=== PATIENT | female | born 1950 | race Caucasian/White ===

== ENCOUNTER → 2018-04-25 | Day surgery (SDC) | payer MEDICARE ==
[2018-04-20 11:42] LABS: BASOPHILS # (AUTO) 0.1 (0.0-0.1); BASOPHILS % 0.6 % (0.0-1.0); EOSINOPHILS # (AUTO) 0.2 (0.0-0.4); EOSINOPHILS % 1.9 % (0.0-6.0); HEMATOCRIT 41.7 % (34.2-44.1); HEMOGLOBIN 13.3 g/dL (12.0-16.0); LYMPHOCYTES # (AUTO) 2.8 (1.0-3.2); LYMPHOCYTES % 29.2 % (18.0-39.1); MEAN CORPUSCULAR HEMOGLOBIN 28.5 pg (28-32); MEAN CORPUSCULAR HGB CONC 31.9 g/dL (31-35); MEAN CORPUSCULAR VOLUME 89.3 fL (81-99); MONOCYTES # (AUTO) 0.7 (0.2-0.8); MONOCYTES % 7.3 % (4.4-11.3); NEUTROPHILS # (AUTO) 5.8 (2.1-6.9); NEUTROPHILS % 60.6 % (38.7-80.0); PLATELET COUNT 290 x10e3/uL (140-360); RED BLOOD COUNT 4.67 x10e6/uL (3.6-5.1); RED CELL DISTRIBUTION WIDTH 18.5 % (11.7-14.4)
[2018-04-20 12:06] LABS: ALANINE AMINOTRANSFERASE 15 IU/L (0-55); ALBUMIN 3.7 g/dL (3.5-5.0); ALBUMIN/GLOBULIN RATIO 1.1 (0.8-2.0); ALKALINE PHOSPHATASE 94 IU/L (40-150); ANION GAP 15.8 mmol/L (8-16); BLOOD UREA NITROGEN 10 mg/dL (7-26); BUN/CREATININE RATIO 13 (6-25); CALCIUM 9.2 mg/dL (8.4-10.2); CARBON DIOXIDE 26 mmol/L (22-29); CHLORIDE 105 mmol/L (98-107); CREATININE, SERUM 0.75 mg/dL (0.57-1.11); EST GLOMERULAR FILTRATION RATE > 60 ML/MIN (60-); GLUCOSE 105 mg/dL (74-118); POTASSIUM 3.8 mmol/L (3.5-5.1); SODIUM 143 mmol/L (136-145)
--- NOTE | 2018-04-20 12:23 | Diagnostic Imaging Report ---
PROCEDURE: Frontal and lateral views of the chest. COMPARISON: None. INDICATIONS: BREAST RECONSTRUCTION, PRE OPERATIVE CHEST X-RAY FINDINGS: Lines/tubes: None. Lungs: Right infrahilar airspace opacity. Linear subsegmental atelectasis in the left lower lung. Pleura: There is no pleural effusion or pneumothorax. Heart and mediastinum: Enlarged cardiac silhouette. Prominence of bilateral pulmonary arteries, left greater than right Bones: No acute bony abnormality. Degenerative changes in the thoracic spine. IMPRESSION: 1. right infrahilar airspace opacity, which may represent atelectasis or developing pneumonia, in the appropriate clinical setting. Karlos Garcia M.D. Dictated by: Karlos Garcia M.D. on 04/20/2018 at 12:26 Electronically approved by: Karlos Garcia M.D. on 04/20/2018 at 12:26
[~2018-04-25] MED LIST: BACITRACIN 50,000 UNIT VIAL ONE; BYDUREON2 MG SC; DEXAMETHASONE SOD PHOS INJ 4 MG/ML VIAL ONE; DEXTROSE 5% 250ML 250 ML IV ONE; FENTANYL CITRATE/PF 100MCG/2 ML INJ ONE; GABAPENTIN100 MG PO; GLYCOPYRROLATE INJ 1MG/ 5 ML SYR ONE; INVOKANA PO; LANTUS 3ML100 UNITS/ SC; LETROZOLE2.5 MG PO; LIDOCAINE HCL 2% LOCAL INJ 5 ML SDV VIAL INJ ONE; LIPITOR10 MG PO; LORAZEPAM0.5 MG PO; LUNESTA3 MG PO; METOCLOPRAMIDE HCL 10 MG/2ML VIAL ONE; METOPROLOL TART50 MG PO; METOPROLOL TARTRATE INJ 1 MG/ML VIAL ONE; MIDAZOLAM HCL 2 MG/2 ML VIAL ONE; MORPHINE SULFATE INJ 10 MG/ML ONE; NEOSTIGMINE 5 MG/5ML SYR ONE; ONDANSETRON HCL 4 MG ORAL DISINTEGRATING TAB ONE; ONDANSETRON HCL INJ 2 MG/ML VIAL ONE; PROPOFOL IV EMULSION 10 MG/ML 20 ML VIAL ONE; ROCURONIUM BROMIDE 10 MG/ML 5ML VIAL ONE; SEVOFLURANE INHAL SOLN 250 ML PEN BTL ONE; SYNTHROID125 MCG PO; ULTRAM50 MG PO; XARELTO10 MG PO
--- OUTSIDE RECORDS SUMMARY | 2018-04-25 10:17 | XMS REPORT | Clinical Summary ---
Author Author [facility] Address Unknown Phone Unavailable Care Team Providers Care Agricultural Equipment Salesperson Name Role Phone Marci Webster MD PCP Allergies No Known Allergies Current Medications Prescription Sig. Disp. Refills Start End Date Status Date ARIPiprazole (ABILIFY) 20 TK 1 T PO QD 1 04/07/20 Active MG tablet 17 atorvastatin (LIPITOR) 40 TK 1 T PO QD 1 02/16/20 Active MG tablet 17 INVOKANA 100 mg tablet 04/19/20 Active tablet 17 cyclobenzaprine 03/14/20 Active (FLEXERIL) 10 mg tablet 17 CARTIA XT 180 mg 24 hr 03/03/20 Active capsule 17 DULoxetine (CYMBALTA) 60 TK ONE C PO QD 0 02/08/20 Active MG capsule 17 BYDUREON 2 mg/0.65 mL pen 03/28/20 Active injector 17 folic acid (FOLVITE) 1 MG 02/22/20 Active tablet 17 HYDROcodone-acetaminophen TK 1 T PO QID PRF 0 04/06/20 Active (NORCO) 10-325 mg per BREAKTHROUGH PAIN 17 tablet traMADol-acetaminophen TK 1 T PO BID PRF 0 04/05/20 Active (ULTRACET) 37.5-325 mg BREAKTHROUGH P 17 per tablet insulin GLARGINE (LANTUS) Inject 60 Units under the Active 100 unit/mL injection skin nightly. (vial) etodolac (LODINE) 300 MG Take 300 mg by mouth 2 Active capsule (two) times a day before meals. melatonin 10 mg capsule Take 30 mg by mouth Active daily. levothyroxine (SYNTHROID, 02/18/20 Active LEVOXYL) 150 mcg tablet 17 methotrexate 2.5 MG Take by mouth every 12 Active tablet (twelve) hours for 3 (three) doses only each week. biotin 1 mg capsule Take 1 capsule by mouth Active daily. eszopiclone (LUNESTA) 3 Take 3 mg by mouth Active mg tablet nightly. Take immediately before bedtime furosemide (LASIX) 20 mg Take 20 mg by mouth Active tablet daily. gabapentin (NEURONTIN) Take 100 mg by mouth 3 Active 100 mg capsule (three) times a day. LORAZepam (ATIVAN) 0.5 MG Take 0.5 mg by mouth 2 Active tablet (two) times a day. metoprolol tartrate Take 50 mg by mouth 3 Active (LOPRESSOR) 50 mg tablet (three) times a day. morPHINE (MS CONTIN) 30 Take 30 mg by mouth 2 Active MG 12 hr tablet (two) times a day. ondansetron (ZOFRAN) 8 MG Take 8 mg by mouth every Active tablet 8 (eight) hours as needed for nausea or vomiting. prochlorperazine Take 10 mg by mouth every Active (COMPAZINE) 10 MG tablet 6 (six) hours as needed for nausea or vomiting. traMADol (ULTRAM) 50 mg Take 50 mg by mouth every Active tablet 6 (six) hours as needed for moderate pain. rivaroxaban (XARELTO) 15 Take 15 mg by mouth Active mg tablet daily. TREXALL 10 mg tablet TK 5 TS PO 1 TIME WEEKLY 0 03/08/20 05/19/20 Discontin 17 17 ued Active Problems Problem Noted Date Carcinoma of right breast 04/21/2017 Encounters Date Type Specialty Care Team Description 12/01/2017 Hospital Radiology Nathalie Ferrer MD Elevated liver function Encounter tests 11/24/2017 Transcribe Access Nathalie Ferrer MD Elevated liver function Orders tests (Primary Dx) 10/27/2017 Emergency Emergency Medicine Jaycee Fernandez MD Hyperglycemia (Primary Dx) 07/07/2017 Office Visit General Surgery Bong Hope MD Carcinoma of right breast (Primary Dx) 05/19/2017 Office Visit General Surgery Bong Hope MD Carcinoma of right breast (Primary Dx) 05/13/2017 Telephone General Surgery Delma Mistry MA 05/11/2017 [facility] Radiology Bong Hope MD Invasive carcinoma of Encounter breast 05/11/2017 [facility] General Surgery Bong Hope MD Carcinoma of right Encounter breast; Invasive ductal carcinoma of breast, unspecified laterality 05/11/2017 Hospital Radiology Bong Hope MD Invasive carcinoma of Encounter breast 05/11/2017 Anesthesia General Surgery Gurjit Medina 05/11/2017 Procedure Pass General Surgery 05/11/2017 Surgery General Surgery Bong Hope MD RIGHT BREAST LUMPECTOMY, WIRE LOCALIZATION, SENTINEL LYMPH NODE BIOPSY 05/09/2017 Hospital Radiology Bong Hope MD Encounter 05/09/2017 Hospital Radiology Bong Hope MD Encounter 05/09/2017 Hospital Radiology Bong Hope MD Encounter 05/09/2017 Hospital Radiology Bong Hope MD Encounter 05/09/2017 Ancillary Radiology Bong Hope MD Orders 04/27/2017 Procedure Pass General Surgery after 04/24/2017 Family History Medical History Relation Name Comments Colon cancer Brother Diabetes Brother Heart disease Brother Stroke Brother Arthritis Mother Colon cancer Mother Diabetes Mother Hypertension Mother Diabetes Sister Heart disease Sister Lung disease Sister Relation Name Status Comments Brother Alive Father Mother Sister Alive Social History Tobacco Use Types Packs/Day Years Used Date Former Smoker Cigarettes 0.5 1 Quit: 1970 Smokeless Tobacco: Never Used Alcohol Use Drinks/Week oz/Week Comments No Sex Assigned at Date Recorded Not on file Last Filed Vital Signs Vital Sign Reading Time Taken Blood Pressure 123/60 10/27/2017 12:00 PM [employer]CH[employer] Pulse 112 10/27/2017 12:00 PM [employer]CH[employer] Temperature 36.7 C (98.1 F) 10/27/2017 10:32 AM [employer] ARCHITECT Respiratory Rate 16 10/27/2017 12:00 PM [employer] ARCHITECT Oxygen Saturation 97% 10/27/2017 12:00 PM [employer] ARCHITECT Inhaled Oxygen - - Concentration Weight 93.9 kg (207 lb) 05/11/2017 8:20 AM CDT Height 161.3 cm (5' 3.5") 10/27/2017 10:42 AM [employer] ARCHITECT Body Mass Index 35.53 05/11/2017 8:20 AM CDT Plan of Treatment Health Maintenance Due Date Last Done Comments COLON CANCER SCREENING 2001 SHINGRIX VACCINE (#1) 2001 ZOSTER VACCINE 2011 PNEUMOCOCCAL 2016 POLYSACCHARIDE VACCINE AGE 65 AND OVER PNEUMOCOCCAL-13 2016 INFLUENZA VACCINE 06/28/2018 BREAST CANCER SCREENING 05/11/2019 05/11/2017 Procedures Procedure Name Priority Date/Time Associated Diagnosis Comments CT AN ELECTIVE Routine 05/11/2017 SUPRAGLOTTIC AIRWAY 10:44 AM CDT Procedure Note - Gurjit Medina - 05/11/2017 10:43 AM CDT Airway Date/Time: 05/11/2017 10:33 AM Performed by: GURJIT MEDINA Authorized by: ALYSSA LAU Location: OR Urgency: Elective Difficult Airway: No Anesthesio logist: ALYSAS LAU Other Anesthesia Staff: GURJIT MEDINA Performed by: other anesthesia staff Preoxygena ynes with 100% O2: Yes C-spine Precaution s Maintained Throughout : Yes Mask Ventilatio n: Easy mask Final Airway Type: Supraglott ic airway Final LMA: [place] LMA Size: 4 Number of Attempts at Approach: 1 Lips and gums in preanesthe tic condition RIGHT BREAST LUMPECTOMY, 05/11/2017 RIGHT BREAST INVASIVE WIRE LOCALIZATION, 10:30 AM CDT CARCINOMA C50.919 SENTINEL LYMPH NODE BIOPSY after 04/24/2017 Results * US Abdomen Complete (12/01/2017 9:30 AM) Specimen Performing Laboratory [address] [address] Narrative EXAM: US ABDOMEN COMPLETE CLINICAL DATA: 67 years Female R79.89 Other specified abnormal findings of blood chemistry, INCREASED LIVER FUNCTION COMPARISON: NONE. FINDINGS: The liver is mildly heterogeneous and echogenic suggesting mild diffuse fatty infiltration. No focal lesions are identified. The main portal vein is within normal limits measuring 8 mm. Flow is toward the liver. The gallbladder has been removed. The common duct measures 1.7 cm which is dilated. A definite stone within the duct is not identified to limits of visualization. The right kidney measures 11.7 cm length 5.5 cm AP dimension 4.6 cm in width with cortical mantle thickness of 1.5 cm. There is no evidence of obstruction or contour deforming mass. The left kidney measures 10.7 cm length 4.7 cm AP dimension 6.4 cm in width with cortical mantle thickness of 1.4 cm. No contour deforming mass or obstruction is noted. The spleen appears normal in size and texture. The visualized portion of the pancreas appears unremarkable the tail is partially obscured. The aorta and vena cava appear unremarkable to the limits of visualization although the vena cava in particular is poorly visualized below the diaphragm. IMPRESSION: 1. Echogenic heterogeneous liver suggesting an element of fatty infiltration. 2. Gross dilation of the common duct to 1.7 cm in this patient who is post cholecystectomy. [id number] Procedure Note Hm Interface, Radiology Results Incoming - 12/01/2017 10:24 AM [employer] AX SOLUTION ARCHITECT EXAM: US ABDOMEN COMPLETE CLINICAL DATA: 67 years Female R79.89 Other specified abnormal findings of blood chemistry, INCREASED LIVER FUNCTION COMPARISON: NONE. FINDINGS: The liver is mildly heterogeneous and echogenic suggesting mild diffuse fatty infiltration. No focal lesions are identified. The main portal vein is within normal limits measuring 8 mm. Flow is toward the liver. The gallbladder has been removed. The common duct measures 1.7 cm which is dilated. A definite stone within the duct is not identified to limits of visualization. The right kidney measures 11.7 cm length 5.5 cm AP dimension 4.6 cm in width with cortical mantle thickness of 1.5 cm. There is no evidence of obstruction or contour deforming mass. The left kidney measures 10.7 cm length 4.7 cm AP dimension 6.4 cm in width with cortical mantle thickness of 1.4 cm. No contour deforming mass or obstruction is noted. The spleen appears normal in size and texture. The visualized portion of the pancreas appears unremarkable the tail is partially obscured. The aorta and vena cava appear unremarkable to the limits of visualization although the vena cava in particular is poorly visualized below the diaphragm. IMPRESSION: 1. Echogenic heterogeneous liver suggesting an element of fatty infiltration. 2. Gross dilation of the common duct to 1.7 cm in this patient who is post cholecystectomy. [id number] * POC glucose (10/27/2017 12:36 PM) Only the most recent of 3 results within the time period is included. Component Value Ref Range POC glucose 270 (H) 65 - 99 mg/dL Comment: Meter ID: [id number] Change Analyst: Quyen Mckeon Specimen Performing Laboratory [facility] DEPARTMENT OF PATHOLOGY AND GENOMIC MEDICINE [address] [place] [address] * Urinalysis screen and microscopy, with reflex to culture (10/27/2017 11:31 AM) Component Value Ref Range Specimen site Clean catch Color, UA Straw Appearance, UA Clear Specific gravity, UA 1.027 1.001 - 1.035 pH, UA 6.0 5.0 - 8.5 Protein, UA Negative Negative Glucose, UA 3+ (A) Negative Ketones, UA Negative Negative Bilirubin, UA Negative Negative Blood, UA Negative Negative Nitrite, UA Negative Negative Urobilinogen, UA Negative <2.0 Leukocyte esterase, UA Negative Negative Epithelial cells, UA Few /HPF WBC, UA 0-5 0 - 4 /HPF RBC, UA 0-5 0 - 2 /HPF Bacteria, UA None seen None seen Yeast, UA None seen Yeast with pseudohyphae, None seen UA Specimen Performing Laboratory Urine [facility] DEPARTMENT OF PATHOLOGY AND [facility] [id number] [place] [address] [place] [address] * Estimated GFR (10/27/2017 11:31 AM) Component Value Ref Range GFR Non Af Amer 84 mL/min/1.73 m2 GFR Af Amer >90 mL/min/1.73 m2 Comment: Chronic kidney disease: <60 mL/min/1.73m2 Kidney failure: <15 mL/min/1.73m2 The estimated GFR is calculated from the IDMS-traceable Modification of Diet in Renal Disease Equation. The accuracy of the calculation is poor when the creatinine is normal. Calculated values >90 mL/min/1.73m2 are not reported. This equation has not been validated in children (<18 years), women, the elderly (>70 years), or ethnic groups other than Caucasians and Americans. Specimen Performing Laboratory Plasma specimen [facility] OF PATHOLOGY AND GENOMIC [address] [place] [address] * CBC with platelet and differential (10/27/2017 11:31 AM) Component Value Ref Range WBC 6.78 4.50 - 11.00 k/uL RBC 4.21 4.20 - 5.50 m/uL HGB 11.3 (L) 12.0 - 16.0 g/dL HCT 37.0 37.0 - 47.0 % MCV 87.9 82.0 - 100.0 fL MCH 26.8 (L) 27.0 - 34.0 pg MCHC 30.5 (L) 31.0 - 37.0 g/dL RDW - SD 57.1 (H) 37.0 - 55.0 fL MPV 11.2 8.8 - 13.2 fL Platelet count 370 150 - 400 k/uL Nucleated RBC 0.00 /100 WBC Neutrophils 84.3 (H) 39.0 - 69.0 % Lymphocytes 11.1 (L) 25.0 - 45.0 % Monocytes 3.8 0.0 - 10.0 % Eosinophils 0.0 0.0 - 5.0 % Basophils 0.1 0.0 - 1.0 % Immature granulocytes 0.7Comment: "Immature granulocytes" 0.0 - 1.0 % (promyelocytes, myelocytes, metamyelocytes) Specimen Performing Laboratory Blood [facility] DEPARTMENT OF PATHOLOGY AND [facility] MEDICINE [address] [place] [address] * Urine culture (10/27/2017 11:31 AM) Component Value Ref Range Urine culture SEE COMMENTComment: Bacteriuria screen negative. Specimen Performing Laboratory Urine [facility] DEPARTMENT OF PATHOLOGY AND [facility] [address] [place] [address] * Comprehensive metabolic panel (10/27/2017 11:31 AM) Component Value Ref Range Sodium 139 135 - 148 mEq/L Potassium 4.7 3.5 - 5.0 mEq/L Chloride 99 98 - 112 mEq/L CO2 23 (L) 24 - 31 mEq/L Anion gap 17 (H) 7 - 15 mEq/L Comment: Starting from February , anion gap calculation no longer incorporates potassium. Please note the change. BUN 16 8 - 23 mg/dL Creatinine 0.7 0.5 - 0.9 mg/dL Glucose 461 (HH) 65 - 99 mg/dL Comment: Results called to and read back by CHRISTIANE LAWSON RN/ER (name/location) at _10/27/17@1158 (date/time) by _KN_. Calcium 9.0 8.8 - 10.2 mg/dL Protein 7.0 6.3 - 8.3 g/dL Comment: 4.6-7.0 g/dL 1 week 4.4-7.6 g/dL 7 months-1year 5.1-7.3 g/dL 1-2 years 5.6-7.5 g/dL >3 years 6.0-8.0 g/dL 18-150 6.3-8.3 g/dL Albumin 3.7 3.5 - 5.0 g/dL A/G ratio 1.1 0.7 - 3.8 Alkaline phosphatase 84 35 - 104 U/L AST 20 10 - 35 U/L ALT 19 5 - 50 U/L Total bilirubin 1.1 0.0 - 1.2 mg/dL Specimen Performing Laboratory Plasma specimen [facility] DEPARTMENT OF PATHOLOGY AND GENOMIC MEDICINE [address] [place] [address] * Surgical pathology request (05/11/2017 12:19 PM) Component Value Ref Range Surgical pathology report See link below for PDF Lab Report Specimen Performing Laboratory [facility] DEPARTMENT OF PATHOLOGY AND GENOMIC MEDICINE [address] [place] [address] * Breast Specimen (05/11/2017 11:32 AM) Specimen Performing Laboratory [facility] [address] [place] [address] Narrative EXAMINATION:BREAST SPECIMEN IMPRESSION: Intra-operative digital Faxitron breast specimen radiography demonstrates the targeted biopsy clip and distal portion of the localization wire. Findings were relayed to Dr. Hope in the OR at the time of the surgery. [id number] * NM Lymphoscintigraphy (05/11/2017 11:25 AM) Specimen Performing Laboratory [facility] [address] [place] [address] Narrative EXAMINATION:NM LYMPHOSCINTIGRAPHY CLINICAL HISTORY:C50.919 Malignant neoplasm of unspecified site of unspecified female breast, INVASIVE CARCINOMA COMPARISON:None. FINDINGS: Following informed consent using aseptic technique under local anesthetic the right lower quadrant subpleural dose of a total dose of 643 uCi was injected in a periareolar fashion. The patient tolerated the procedure well. On subsequent images obtained postinjection no early migration of the isotope is identified. IMPRESSION: No activity in the norm bearing regions of the axilla, supraclavicular or internal mammary region are noted on these early films. [id number] Procedure Note Interface, Radiology Results Incoming - 05/11/2017 11:34 AM CDT EXAMINATION: NM LYMPHOSCINTIGRAPHY CLINICAL HISTORY: C50.919 Malignant neoplasm of unspecified site of unspecified female breast, INVASIVE CARCINOMA COMPARISON: None. FINDINGS: Following informed consent using aseptic technique under local anesthetic the right lower quadrant subpleural dose of a total dose of 643 uCi was injected in a periareolar fashion. The patient tolerated the procedure well. On subsequent images obtained postinjection no early migration of the isotope is identified. IMPRESSION: No activity in the norm bearing regions of the axilla, supraclavicular or internal mammary region are noted on these early films. [id number] * Mammo Diagnostic w Cad Right (05/11/2017 9:19 AM) [facility] [address] [place] [address] Narrative PROCEDURE: MAMMO DIAGNOSTIC W CAD RIGHT HISTORY:66-year-old patient with known primary malignancy in the right breast diagnostic outside facility for which ultrasound-guided localization prior to lumpectomy was requested. CONSENT:Informed consent for ultrasound guided needle localization of the right breast was obtained following a detailed discussion of the procedure, alternatives, risks, and complications including hemorrhage and infection. TECHNIQUE:A time out was performed by the team prior to the procedure to verify the patient identity and lesion site(s). FINDINGS:Under ultrasound guidance the 1.6 cm hypoechoic mass at the 3:00 position the right breast was targeted. The ultrasound guided needle localization was performed with a 7 cm length Ghiatus localization needle set under the usual aseptic conditions and 1% lidocaine local anesthetic. Positioning was confirmed sonographically and the wire successfully deployed. The patient tolerated the procedure well without complications. Post localization mammogram demonstrates satisfactory position of the wire. Skin entry to clip distance measures 2.4 cm. Printed mammographic images were sent with the patient to the operating room. RECOMMENDATION / IMPRESSION:Technically successful ultrasound-guided wire needle localization of the right breast. [id number] * US Breast Localization Right (05/11/2017 8:48 AM) Specimen Performing Laboratory [facility] [address] [place] [address] Narrative PROCEDURE: US BREAST LOCALIZATION RIGHT HISTORY:66-year-old patient with known primary malignancy in the right breast diagnostic outside facility for which ultrasound-guided localization prior to lumpectomy was requested. CONSENT:Informed consent for ultrasound guided needle localization of the right breast was obtained following a detailed discussion of the procedure, alternatives, risks, and complications including hemorrhage and infection. TECHNIQUE:A time out was performed by the team prior to the procedure to verify the patient identity and lesion site(s). FINDINGS:Under ultrasound guidance the 1.6 cm hypoechoic mass at the 3:00 position the right breast was targeted. The ultrasound guided needle localization was performed with a 7 cm length Ghiatus localization needle set under the usual aseptic conditions and 1% lidocaine local anesthetic. Positioning was confirmed sonographically and the wire successfully deployed. The patient tolerated the procedure well without complications. Post localization mammogram demonstrates satisfactory position of the wire. Skin entry to clip distance measures 2.4 cm. Printed mammographic images were sent with the patient to the operating room. RECOMMENDATION / IMPRESSION:Technically successful ultrasound-guided wire needle localization of the right breast. [id number] * US Breast External Study (05/09/2017 1:14 PM) Only the most recent of 2 results within the time period is included. Specimen Performing Laboratory [facility] [address] [place] [address] Narrative This exam was not acquired at a [facility] facility and has not been interpreted by a [facility] Provider.The exam was imported into our imaging system for comparisons purposes. * Mammo External Study (05/09/2017 1:13 PM) Only the most recent of 2 results within the time period is included. Specimen Performing Laboratory [facility] [address] [place] [address] Narrative This exam was not acquired at a [facility] facility and has not been interpreted by a [facility] Provider.The exam was imported into our imaging system for comparisons purposes. after 04/24/2017 Insurance Payer Benefit Subscriber ID Type Phone Address Plan / Group AETNA MEDICARE AETNA xxxxxxxx O MEDICARE HMO/PPO [facility] [place] [id number]
--- OUTSIDE RECORDS SUMMARY | 2018-04-25 10:17 | XMS REPORT ---
Author Author [facility] Address Unknown Phone Unavailable Care Team Providers Care Varnish Maker Name Role Phone MIRIAM PERES Unavailable Unavailable Problems This patient has no known problems. Allergies, Adverse Reactions, Alerts This patient has no known allergies or adverse reactions. Medications This patient has no known medications. Results Test Description Test Time Test Comments Text Results Atomic Results Result Comments CHEST 2 VIEWS [place] [address] Patient Name: MELANIE CABALLERO MR #: [id number] : 1950 Age/Sex: 67/F Req #: [id number] Adm Physician: Ordered by: SUSAN CONTRERAS MD Report #: [id number] Location: OR Room/Bed: Procedure: [id number] DX/CHEST 2 VIEWS Exam Date: Exam Time: REPORT STATUS: Signed PROCEDURE: Frontal and lateral views of the chest. COMPARISON: None. INDICATIONS: BREAST RECONSTRUCTION, PRE OPERATIVE CHEST X-RAY FINDINGS: Lines/tubes: None. Lungs: Right infrahilar airspace opacity. Linear subsegmental atelectasis in the left lower lung. Pleura: There is no pleural effusion or pneumothorax. Heart and mediastinum: Enlarged cardiac silhouette. Prominence of bilateral pulmonary arteries, left greater than right Bones: No acute bony abnormality. Degenerative changes in the thoracic spine. IMPRESSION: 1. right infrahilar airspace opacity, which may represent atelectasis or developing pneumonia, in the appropriate clinical setting. Rocky Garcia M.D. Dictated by: Rocky Garcia M.D. on 04/20/2018 at 12: 26 Electronically approved by: Rocky Garcia M.D. on 04/20/2018 at 12:26 Dictated By: ROCKY GARCIA MD 1226 Transcribed By: JAG on 04/20/18 1226 COPY TO: SUSAN CONTRERAS MD
--- NOTE | 2018-05-28 12:06 | Operative Report ---
DATE OF PROCEDURE: April 25, 2018 PREOPERATIVE DIAGNOSES 1. History of right breast cancer. 2. Acquired absence of right breast. 3. Left breast ptosis. 4. Breast asymmetry. POSTOPERATIVE DIAGNOSES 1. History of right breast cancer. 2. Acquired absence of right breast. 3. Left breast ptosis. 4. Breast asymmetry. PROCEDURES PERFORMED 1. Exchange of right breast tissue licensed embalmer with permanent silicone gel implant, Helm smooth, round, ultrahigh profile, 800 mL, serial number [id number]. 2. Right capsulotomy. 3. Revision of right breast reconstruction. 4. Left breast mastopexy. 5. Placement of left breast silicone gel implant, Helm smooth, moderate-plus profile extra, 130 mL, serial number [id number]. ANESTHESIA: General endotracheal. INDICATIONS FOR SURGERY: This is a 67-year-old female who last year was diagnosed with right breast cancer and underwent right breast mastectomy and immediate reconstruction with tissue licensed embalmer. The patient is currently presenting for exchange of right breast tissue licensed embalmer with silicone gel implant, right breast capsulotomy, revision of right breast reconstruction, left breast mastopexy, and placement of left breast silicone gel implant and reconstruction. The risks, alternatives and possible complications of the above procedure were explained to the patient. These include, but are not limited to: Bleeding, infection, scarring, skin flap necrosis, capsular contracture, breast asymmetry, exposure or failure of silicone gel breast implants, wound dehiscence, unsatisfactory aesthetic result, and possible need for further surgery. The patient had an opportunity to ask questions and have her questions answered and agreed to proceed with the proposed procedure. PROCEDURE IN DETAIL: The patient was marked in the preoperative holding area. She was then taken to the operating room and placed supine on the operating table. After adequate general anesthesia, the patient's bilateral breasts were prepped and draped in the usual surgical fashion. Attention was then turned first to the patient's right breast. An incision was made along the previous mastectomy incision with a #15 blade. Tissue was dissected down to breast capsule, and the tissue licensed embalmer was deflated and removed. The breast pocket was irrigated with normal saline with antibiotic solution. Extensive medial and superior capsulotomy was performed with the help of the Bovadelita, Yelitza and Sanjiv retractor as well as headlight. Revision of right breast reconstruction was then also performed by placing lateral capsulorrhaphy sutures with interrupted #0 Ethibond sutures. After the capsulotomy and the revision of right breast reconstruction, the breast pocket was irrigated again with normal saline with antibiotic solution. The silicone gel implant, which was smooth, round, ultrahigh profile, 800 mL, was placed in the pocket. The incision was closed with interrupted 3-0 Vicryl sutures in several layers and a running subcuticular 3-0 PDS suture. A revision of the right breast reconstruction was also performed by excising a medial dog ear. The dog ear was excised with a #15 blade. Hemostasis was achieved with the Bovie, and the incision was closed with interrupted 3-0 Vicryl sutures and a running subcuticular 3-0 PDS suture. Attention was then turned to the patient's left breast. The nipple-areolar complex was marked with a Plethora cutter at 42 mm in diameter. A vertical incision was made below the nipple-areolar complex with a #15 blade. Tissue was dissected down to the chest wall with the help of the Bovie. The pectoralis major muscle was identified, and a subpectoral pocket was developed with the help of the Bovie, Yelitza, and Sanjiv retractor as well as headlight. The pocket was irrigated with normal saline with antibiotic solution and checked for hemostasis. A sizer was placed in the pocket, and the patient was placed in the sitting position. When the sizer was inflated to 130 mL, the 2 breasts appeared to be symmetric. The sizer was removed, and 130-mL silicone, smooth, moderate plus profile extra implant was placed in the pocket. The pocket was closed with interrupted 3-0 Vicryl sutures. The excess skin was stapled, and the patient was again placed in a sitting position, and the 2 breasts were checked for symmetry. They appeared to be symmetric. The excess skin was then de-epithelialized with the help of a #15 blade and with the Bovie. The nipple-areolar complex was sutured in its new superior location with interrupted 4-0 Vicryl sutures. The medial and lateral skin flaps were advanced to each other and sutured to each other with interrupted 3-0 Vicryl sutures. A running subcuticular 4-0 PDS suture was placed along the vertical limb and around the nipple-areolar complex. At the end of the case, the 2 breasts appeared to be symmetric. All skin flaps and nipple appeared viable. Steri-Strips were placed around the nipple-areolar complex. All incisions were covered with Xeroform. The patient was wrapped with a large, 6-inch Roman wrap. She tolerated the procedure well. There were no immediate complications. The needle and instrument count was correct at the end of the case. She was transferred extubated to the recovery room. Job#: [id number]
== END | disposition home or self-care (01) ==
LOC: OR 10:14
PROVIDERS: ATTEND Plastic Surgery
DX: N64.81 Ptosis of breast (principal); N64.89 Other specified disorders of breast; L82.1 Other seborrheic keratosis; Z85.3 Personal history of malignant neoplasm of breast; I48.91 Unspecified atrial fibrillation; E11.9 Type 2 diabetes mellitus without complications; E03.9 Hypothyroidism, unspecified; K58.9 Irritable bowel syndrome, unspecified; K44.9 Diaphragmatic hernia without obstruction or gangrene; K75.9 Inflammatory liver disease, unspecified; M32.9 Systemic lupus erythematosus, unspecified; Z01.812 Encounter for preprocedural laboratory examination; Z01.818 Encounter for other preprocedural examination; Z79.02 Long term (current) use of antithrombotics/antiplatelets; Z79.4 Long term (current) use of insulin
CPT/HCPCS: 11970; 19316; 19340; 36415 ×2; 71046; 80053; 82948; 85025; 88305; J1100; J2001; J2250; J2270; J2405; J2765; J3490